=== PATIENT | female | born 1985 | race Caucasian/White ===

== ENCOUNTER 2016-09-05 11:28 | Inpatient (IN) | payer OTHER ==
[2016-09-05 12:48] VITALS: BMI 22.8
--- NOTE | 2016-09-05 14:17 | HP ---
COWS - Scale Resting Pulse: 2= [place] 101-120 Sweatin=Flushed/Facial Moisture Restless Observation: 1= Difficult to Sit Still Pupil Size: 0= Normal to Room Light Bone or Joint Aches: 2= Severe Diffuse Aches Runny Nose/ Eye Tearin= Runny Nose/Eyes GI Upset > 30mins: 1= Stomach Cramp Tremor Observation: 2= Slight Tremor Visible Yawning Observation: 2= >3x During Session Anxiety or Irritability: 2=Irritable/Anxious Goose Flesh Skin: 3=Piloerection COWS Score: 19 Admission ROS S - HPI Chief Complaint: I need to be here. Allergies/Adverse Reactions: Allergies Allergy/AdvReac Type Severity Reaction Status Date / Time No Known Allergies Allergy Verified 09/05/16 13:35 History of Present Illness: pt is a 31yr old female with a history of heroin dependence seeking detox for treatment. Exam Limitations: No Limitations - Ebola screening Have you traveled outside of the country in the last 21 days: No Have you had contact with anyone from an Ebola affected area: No Have you been sick,other than usual withdrawal symptoms: No Do you have a fever: No - Review of Systems Constitutional: Chills, Diaphoresis, Loss of Appetite, Night Sweats, Changes in sleep, Unintentional Wgt. Loss EENT: reports: No Symptoms Reported Respiratory: reports: No Symptoms reported Cardiac: reports: No Symptoms Reported GI: reports: Poor Appetite, Poor Fluid Intake : reports: No Symptoms Reported Musculoskeletal: reports: No Symptoms Reported Integumentary: reports: Flushing, Sweating Neuro: reports: Tingling, Tremors Endocrine: reports: Excessive Sweating, Flushing, Intolerance to Cold, Intolerance to Heat Hematology: reports: No Symptoms Reported Psychiatric: reports: Judgement Intact, Mood/Affect Appropiate, Orientated x3, Agitated, Anxious Other Systems: Reviewed and Negative Patient History - Patient Medical History Hx Anemia: No Hx Asthma: No Hx Chronic Obstructive Pulmonary Disease (COPD): No Hx Cancer: No Hx Cardiac Disorders: No Hx Congestive Heart Failure: No Hx Hypertension: No Hx Hypercholesterolemia: No Hx Pacemaker: No HX Cerebrovascular Accident: No Hx Seizures: No Hx Dementia: No Hx Diabetes: No Hx Gastrointestinal Disorders: No Hx Liver Disease: No Hx Genitourinary Disorders: No Hx Sexually Transmitted Disorders: No Hx Renal Disease (ESRD): No Hx Thyroid Disease: No Hx Human Immunodeficiency Virus (HIV): No (negative) Hx Hepatitis C: No (negative) Hx Depression: No Hx Suicide Attempt: No (denies) Hx Bipolar Disorder: No Hx Schizophrenia: No - Patient Surgical History Past Surgical History: No - PPD History Previous Implant?: Yes Documented Results: Negative w/o proof Implanted On Prior [facility] Admission?: No PPD to be Administered?: Yes - Reproductive History Patient is a Female of Child Bearing Age (11 -55 yrs old): No Last Menstrual Period: 08/05/16 Patient : No - Smoking Cessation Smoking history: Current every day smoker Have you smoked in the past 12 months: Yes Aproximately how many cigarettes per day: 4 Hx Chewing Tobacco Use: No Initiated information on smoking cessation: Yes 'Breaking Loose' booklet given: 09/05/16 - Substance & Tx. History Hx Alcohol Use: No Hx Substance Use: Yes Substance Use Type: Heroin - Substances Abused Heroin Route: Inhalation Frequency: Daily Amount used: 5 bags Age of first use: 24 Date of Last Use: 09/05/16 Family Disease History - Family Disease History Family History: Denies Admission Physical Exam BHS - Vital Signs Vital Signs: Vital Signs - 24 hr 09/05/16 12:46 Temperature 96.7 F L Pulse Rate 113 H Respiratory 20 Rate Blood Pressure 119/81 - Physical General Appearance: Yes: Appropriately Dressed, Moderate Distress, Tremorous, Irritable, Sweating, Anxious HEENTM: Yes: Normal Voice, Nasal Congestion, Rhinorrhea Respiratory: Yes: Lungs Clear, Normal Breath Sounds, No Respiratory Distress Neck: Yes: No masses,lesions,Nodules Breast: Yes: Within Normal Limits Cardiology: Yes: Regular Rhythm, Regular Rate, S1, S2 Abdominal: Yes: Normal Bowel Sounds, Non Tender Genitourinary: Yes: Within Normal Limits Back: Yes: Normal Inspection Musculoskeletal: Yes: full range of Motion Extremities: Yes: Normal Capillary Refill, Tremors Neurological: Yes: Fully Oriented, Alert, Normal Response Integumentary: Yes: Normal Color, Diaphoresis Lymphatic: Yes: Within Normal Limits - Diagnostic (1) Opioid dependence with withdrawal Current Visit: Yes Status: Chronic (2) Nicotine dependence Current Visit: Yes Status: Chronic Qualifiers: Nicotine product type: cigarettes Substance use status: uncomplicated Qualified Code(s): F17.210 - Nicotine dependence, cigarettes, uncomplicated Cleared for Admission [facility] - Detox or Rehab [facility] Level of Care: Medically Managed Detox Regimen/Protocol: Methadone [facility] Breath Alcohol Content Breath Alcohol Content: 0 Urine Pregancy Test - Result Urine Test Results: Negative- NO Line Present Urine Drug Screen - Results Drug Screen Negative: No Urine Drug Screen Results: OPI-Opiates
[2016-09-05] MEDS ORDERED: MAGNESIUM CITRATE 300 ML BOTTLE PO PRN (14:22)
[2016-09-05] MEDS ORDERED: ACETAMINOPHEN 325 MG TABLET (FP) PO PRN (14:22)
[2016-09-05] MEDS ORDERED: LOPERAMIDE HCL 2 MG CAPSULE PO PRN (14:22)
[2016-09-05] MEDS ORDERED: MAGNESIUM HYDROX 2400MG/30ML ORAL SUSPENSION 30 ML CUP PO PRN (14:22)
[2016-09-05] MEDS ORDERED: guaiFENesin/D-METHORPHAN HB 10 ML UNIT-DOSE CUPS PO PRN (14:22)
[2016-09-05] MEDS ORDERED: NICOTINE POLACRILEX 4 MG GUM BC PRN (14:22)
[2016-09-05] MEDS ORDERED: diphenhydrAMINE HCL 50 MG CAPSULE PO PRN (14:22)
[2016-09-05] MEDS ORDERED: MAG HYDROX/AL HYDROX/SIMETH 30 ML UNIT-DOSE CUP PO PRN (14:22)
[2016-09-05] MEDS ORDERED: IBUPROFEN 400 MG TABLET (FP) PO PRN (14:22)
[2016-09-05] MEDS ORDERED: MENTHOL/PHENOL 1 EACH UD MM PRN (14:22)
[2016-09-05] MEDS ORDERED: P-EPHED 60MG/TRIPROLIDI 2.5MG TABLET PO PRN (14:22)
[2016-09-05] MEDS ORDERED: METHADONE HCL 10 MG TABLET (FOR DETOX USE ONLY) PO ONE ×2 (15:00→23:00)
[2016-09-05] MEDS: diazePAM 5 MG TABLET PO PRN ×2 (15:21→22:59)
[2016-09-05 16:48] LABS: URINE APPEARANCE CLOUDY; URINE BILIRUBIN NEGATIVE (NEGATIVE); URINE COLOR DKYELLOW; URINE GLUCOSE (UA) NEGATIVE (NEGATIVE); URINE KETONE TRACE (NEGATIVE); URINE NITRITE NEGATIVE (NEGATIVE); URINE UROBILINOGEN 2.0 E.U/dl E.U./dl (0.2-1.0)
[2016-09-05 17:46] LABS: URINE BLOOD 1+ (NEGATIVE); URINE LEUK ESTERASE 2+ (NEGATIVE); URINE PROTEIN 1+ (NEGATIVE)
[2016-09-05 18:03] LABS: URINE BACTERIA RARE /hpf (NONE SEEN); URINE MUCUS MANY; URINE RBC 11 /hpf (0-3); URINE WBC 35 /hpf (3-5)
[2016-09-05] MEDS: THIAMINE HCL 100 MG TABLET (FP) PO SCH (22:58)
[2016-09-06] MEDS ORDERED: METHADONE HCL 10 MG TABLET (FOR DETOX USE ONLY) PO ONE (10:00)
[2016-09-06 10:27] LABS: MCH 27.3 pg (25.7-33.7); MCHC 33.3 g/dl (32.0-36.0); MEAN CELL VOLUME 81.9 fl (80-96); MEAN PLT VOLUME 8.2 fl (7.5-11.1); PLATELET COUNT 306 K/MM3 (134-434); RDW 12.7 % (11.6-15.6); WHITE BLOOD COUNT 9.3 K/mm3 (4.0-10.0)
[2016-09-06] MEDS: NICOTINE 7 MG/24 HOURS TOPICAL PATCH TD SCH (10:30)
[2016-09-06] MEDS: PRENATAL VITAMINS W/ FOLIC ACID TABLET (FP) PO SCH (10:30)
[2016-09-06 10:59] LABS: ALBUMIN 3.8 g/dl (3.4-5.0); ANION GAP 8 (8-16); BILIRUBIN,TOTAL 0.4 mg/dL (0.2-1.0); CALCIUM 8.8 mg/dL (8.5-10.1); CO2 30 mmol/L (21-32); CREATININE 0.8 mg/dL (0.55-1.02); GLUCOSE,RANDOM 91 mg/dL (74-106); SGOT/AST 8 U/L (15-37); SGPT/ALT 15 U/L (12-78)
[2016-09-06 11:00] LABS: ALK PHOS 111 U/L (45-117); TOT PROT 6.7 g/dl (6.4-8.2)
--- NOTE | 2016-09-06 11:04 | PN ---
BHS COWS - Scale Resting Pulse: 1= [place] 81-100 Sweatin= Chills/Flushing Restless Observation: 3= Extraneous Movement Pupil Size: 1= Pupils >than Normal Bone or Joint Aches: 2= Severe Diffuse Aches Runny Nose/ Eye Tearin= Runny Nose/Eyes GI Upset > 30mins: 3= Vomiting/Diarrhea Tremor Observation of Outstretched Hands: 2= Slight Tremor Visible Yawning Observation: 1= 1-2x During Session Anxiety or Irritability: 2=Irritable/Anxious Goose Flesh Skin: 0=Smooth Skin COWS Score: 18 S Progress Note (SOAP) Subjective: ALERT,IRRITABLE,ANXIOUS,INTERRUPTED SLEEP,TREMOR,PAIN IN THE BODY AND BACK Objective: 09/06/16 11:02 Vital Signs Temperature 98.1 F 09/06/16 09:53 Pulse Rate 85 09/06/16 09:53 Respiratory Rate 18 09/06/16 09:53 Blood Pressure 108/67 09/06/16 09:53 O2 Sat by Pulse Oximetry (%) EKG NSR,NORMAL ECG Laboratory Last Values WBC 9.3 K/mm3 (4.0-10.0) 09/06/16 07:50 RBC 4.77 M/mm3 (3.60-5.2) 09/06/16 07:50 Hgb 13.0 GM/dL (10.7-15.3) 09/06/16 07:50 Hct 39.0 % (32.4-45.2) 09/06/16 07:50 MCV 81.9 fl (80-96) 09/06/16 07:50 MCHC 33.3 g/dl (32.0-36.0) 09/06/16 07:50 RDW 12.7 % (11.6-15.6) 09/06/16 07:50 Plt Count 306 K/MM3 (134-434) 09/06/16 07:50 MPV 8.2 fl (7.5-11.1) 09/06/16 07:50 Urine Color Dkyellow 09/05/16 13:00 Urine Appearance Cloudy 09/05/16 13:00 Urine pH 5.0 (5.0-8.0) 09/05/16 13:00 Ur Specific [place] 1.028 (1.001-1.035) 09/05/16 13:00 Urine Protein 1+ (NEGATIVE) H 09/05/16 13:00 Urine Glucose (UA) Negative (NEGATIVE) 09/05/16 13:00 Urine Ketones Trace (NEGATIVE) H 09/05/16 13:00 Urine Blood 1+ (NEGATIVE) H 09/05/16 13:00 Urine Nitrite Negative (NEGATIVE) 09/05/16 13:00 Urine Bilirubin Negative (NEGATIVE) 09/05/16 13:00 Urine Urobilinogen 2.0 e.u/dl E.U./dl (0.2-1.0) H 09/05/16 13:00 Ur Leukocyte Esterase 2+ (NEGATIVE) H 09/05/16 13:00 Urine RBC 11 /hpf (0-3) 09/05/16 13:00 Urine WBC 35 /hpf (3-5) 09/05/16 13:00 Ur Epithelial Cells Moderate /hpf (FEW) 09/05/16 13:00 Urine Bacteria Rare /hpf (NONE SEEN) 09/05/16 13:00 Urine Mucus Many 09/05/16 13:00 LABS PENDING Assessment: 09/06/16 11:03 WITHDRAWAL SYMPTOM Plan: CONTINUE DETOX,REPEAT UA,ENCOURAGE RAL FLUID
--- NOTE | 2016-09-06 11:45 | CONSULT ---
[facility] Psychiatric Consult - Data Date of interview: 09/06/16 Admission source: [facility] Identifying data: First admission to [facility] for this 31 y/o female seeking detox treatment for heroin dependence.Patient is single,a mother of one, domiciled,unemployed and supported by relatives. Substance Abuse History: - Smoking Cessation. Smoking history: Current every day smoker. Have you smoked in the past 12 months: Yes. Aproximately how many cigarettes per day: 4. Hx Chewing Tobacco Use: No. Initiated information on smoking cessation: Yes. 'Breaking Loose' booklet given: 09/05/16. - Substance & Tx. History. Hx Alcohol Use: No. Hx Substance Use: Yes. Substance Use Type : Heroin. - Substances Abused. Heroin. Route: Inhalation. Frequency: Daily. Amount used: 5 bags. Age of first use: 24. Date of Last Use: . Confirmed by patient. Medical History: Patient endorses good general health. Psychiatric History: Patient denies. Physical/Sexual Abuse/Trauma History: Patient denies. Additional Comment: Urine Drug Screen Results: OPI-Opiates.Noted. Mental Status Exam - Mental Status Exam Alert and Oriented to: Time, Place, Person Cognitive Function: Good Patient Appearance: Well Groomed Mood: Hopeful, Euthymic Affect: Appropriate, Normal Range Patient Behavior: Appropriate, Cooperative Speech Pattern: Clear, Appropriate Voice Loudness: Normal Thought Process: Intact, Goal Oriented Thought Disorder: Not Present Hallucinations: Denies Suicidal Ideation: Denies Homicidal Ideation: Denies Insight/Judgement: Fair Sleep: Well Appetite: Good Muscle strength/Tone: Normal Gait/Station: Normal Psychiatric Findings - Problem List ([place] 1, 2,3) (1) Nicotine dependence Current Visit: Yes Status: Chronic Qualifiers: Nicotine product type: cigarettes Substance use status: uncomplicated Qualified Code(s): F17.210 - Nicotine dependence, cigarettes, uncomplicated (2) Opioid dependence with withdrawal Current Visit: Yes Status: Chronic - Initial Treatment Plan Initial Treatment Plan: Psychoeducation.Detoxification.Observation.
--- NOTE | 2016-09-06 12:31 | EKG ---
Test Reason : Blood Pressure : / mmHG Vent. Rate : 090 BPM Atrial Rate : 090 BPM P-R Int : 132 ms QRS Dur : 084 ms QT Int : 374 ms P-R-T Axes : 059 030 023 degrees QTc Int : 457 ms NORMAL SINUS RHYTHM NORMAL ECG NO PREVIOUS ECGS AVAILABLE Confirmed by TARSHA MIRANDA MD ([id number]) on 09/06/2016 12:30:37 PM Referred By: Dale Parrish Confirmed By:TARSHA MIRANDA MD
[2016-09-06 13:40] LABS: URINE APPEARANCE CLEAR; URINE BILIRUBIN NEGATIVE (NEGATIVE); URINE BLOOD NEGATIVE (NEGATIVE); URINE COLOR YELLOW; URINE GLUCOSE (UA) NEGATIVE (NEGATIVE); URINE KETONE NEGATIVE (NEGATIVE); URINE NITRITE NEGATIVE (NEGATIVE); URINE PROTEIN NEGATIVE (NEGATIVE); URINE UROBILINOGEN NEGATIVE E.U./dl (0.2-1.0)
[2016-09-06 13:42] LABS: URINE LEUK ESTERASE TRACE (NEGATIVE)
[2016-09-06 13:44] LABS: URINE BACTERIA RARE /hpf (NONE SEEN); URINE HYALINE CAST 1 /lpf; URINE MUCUS RARE; URINE RBC 3 /hpf (0-3); URINE WBC 10 /hpf (3-5)
[2016-09-06] MEDS: hydrOXYzine PAMOATE 50 MG CAPSULE (FP) PO PRN (18:25)
[2016-09-06] MEDS: diazePAM 5 MG TABLET PO PRN (22:39)
[2016-09-06] MEDS: THIAMINE HCL 100 MG TABLET (FP) PO SCH (22:39)
[2016-09-07] MEDS ORDERED: METHADONE HCL 5 MG TABLET (FOR DETOX USE ONLY) PO ONE (10:00)
[2016-09-07] MEDS: NICOTINE 7 MG/24 HOURS TOPICAL PATCH TD SCH (10:18)
[2016-09-07] MEDS: PRENATAL VITAMINS W/ FOLIC ACID TABLET (FP) PO SCH (10:18)
--- NOTE | 2016-09-07 11:51 | PN ---
BHS COWS - Scale Resting Pulse: 2= [place] 101-120 Sweatin= Chills/Flushing Restless Observation: 3= Extraneous Movement Pupil Size: 1= Pupils >than Normal Bone or Joint Aches: 2= Severe Diffuse Aches Runny Nose/ Eye Tearin= Runny Nose/Eyes GI Upset > 30mins: 3= Vomiting/Diarrhea Tremor Observation of Outstretched Hands: 2= Slight Tremor Visible Yawning Observation: 1= 1-2x During Session Anxiety or Irritability: 2=Irritable/Anxious Goose Flesh Skin: 0=Smooth Skin COWS Score: 19 BHS Progress Note (SOAP) Subjective: ALERT,IRRITABLE,ANXIOUS,INTERRUPTED SLEEP,TREMOR,PAIN IN THE BODY AND BACK Objective: 09/07/16 11:51 Vital Signs Temperature 97.5 F L 09/07/16 10:43 Pulse Rate 101 H 09/07/16 10:43 Respiratory Rate 20 09/07/16 10:43 Blood Pressure 132/84 09/07/16 10:43 O2 Sat by Pulse Oximetry (%) 09/07/16 11:52 Laboratory Results - last 24 hr 09/06/16 09/06/16 07:50 13:26 Urine Color Yellow Urine Appearance Clear Urine pH 5.0 Ur Specific [place] 1.023 Urine Protein Negative Urine Glucose (UA) Negative Urine Ketones Negative Urine Blood Negative Urine Nitrite Negative Urine Bilirubin Negative Urine Urobilinogen Negative Ur Leukocyte Esterase Trace H D Urine RBC 3 Urine WBC 10 Ur Epithelial Cells Rare Urine Bacteria Rare Hyaline Casts 1 Urine Mucus Rare RPR Titer Nonreactive Assessment: 09/07/16 11:52 WITHDRAWAL SYMPTOM Plan: CONTINUE DETOX
[2016-09-07] MEDS: diazePAM 5 MG TABLET PO PRN ×2 (17:37→22:40)
[2016-09-07] MEDS: THIAMINE HCL 100 MG TABLET (FP) PO SCH (22:40)
[2016-09-08] MEDS ORDERED: METHADONE HCL 5 MG TABLET (FOR DETOX USE ONLY) PO ONE (10:00)
[2016-09-08] MEDS: PRENATAL VITAMINS W/ FOLIC ACID TABLET (FP) PO SCH (10:12)
[2016-09-08] MEDS: NICOTINE 7 MG/24 HOURS TOPICAL PATCH TD SCH (10:14)
--- NOTE | 2016-09-08 11:13 | PN ---
BHS Progress Note (SOAP) Subjective: feeling ok , better Objective: 09/08/16 11:11 Vital Signs Temperature 98.1 F 09/08/16 10:20 Pulse Rate 112 H 09/08/16 10:20 Respiratory Rate 16 09/08/16 10:20 Blood Pressure 110/72 09/08/16 10:20 O2 Sat by Pulse Oximetry (%) Laboratory Tests 09/05/16 09/06/16 09/06/16 13:00 07:50 07:50 WBC 9.3 RBC 4.77 Hgb 13.0 Hct 39.0 MCV 81.9 MCHC 33.3 RDW 12.7 Plt Count 306 MPV 8.2 Sodium 140 Potassium 4.4 Chloride 102 Carbon Dioxide 30 Anion Gap 8 BUN 12 Creatinine 0.8 Creat Clearance w eGFR > 60 Random Glucose 91 Calcium 8.8 Total Bilirubin 0.4 AST 8 L ALT 15 Alkaline Phosphatase 111 Total Protein 6.7 Albumin 3.8 Urine Color Dkyellow Urine Appearance Cloudy Urine pH 5.0 Ur Specific [place] 1.028 Urine Protein 1+ H Urine Glucose (UA) Negative Urine Ketones Trace H Urine Blood 1+ H Urine Nitrite Negative Urine Bilirubin Negative Urine Urobilinogen 2.0 e.u/dl H Ur Leukocyte Esterase 2+ H Urine RBC 11 Urine WBC 35 Ur Epithelial Cells Moderate Urine Bacteria Rare Hyaline Casts Urine Mucus Many RPR Titer 09/06/16 09/06/16 07:50 13:26 WBC RBC Hgb Hct MCV MCHC RDW Plt Count MPV Sodium Potassium Chloride Carbon Dioxide Anion Gap BUN Creatinine Creat Clearance w eGFR Random Glucose Calcium Total Bilirubin AST ALT Alkaline Phosphatase Total Protein Albumin Urine Color Yellow Urine Appearance Clear Urine pH 5.0 Ur Specific [place] 1.023 Urine Protein Negative Urine Glucose (UA) Negative Urine Ketones Negative Urine Blood Negative Urine Nitrite Negative Urine Bilirubin Negative Urine Urobilinogen Negative Ur Leukocyte Esterase Trace H D Urine RBC 3 Urine WBC 10 Ur Epithelial Cells Rare Urine Bacteria Rare Hyaline Casts 1 Urine Mucus Rare RPR Titer Nonreactive pt aox3 in nad ambulating Assessment: 09/08/16 11:11 withdrawal sx;s Plan: cont. deto increase fluids
[2016-09-08] MEDS: hydrOXYzine PAMOATE 50 MG CAPSULE (FP) PO PRN (22:33)
[2016-09-08] MEDS: THIAMINE HCL 100 MG TABLET (FP) PO SCH (22:33)
[2016-09-09] MEDS ORDERED: METHADONE HCL 10 MG TABLET (FOR DETOX USE ONLY) PO ONE (10:00)
[2016-09-09] MEDS: NICOTINE 7 MG/24 HOURS TOPICAL PATCH TD SCH (10:42)
[2016-09-09] MEDS: PRENATAL VITAMINS W/ FOLIC ACID TABLET (FP) PO SCH (10:42)
--- NOTE | 2016-09-09 11:21 | PN ---
BHS Progress Note (SOAP) Subjective: feeling better little sweats Objective: 09/09/16 11:21 Vital Signs Temperature 98.4 F 09/09/16 10:44 Pulse Rate 101 H 09/09/16 10:44 Respiratory Rate 16 09/09/16 10:44 Blood Pressure 108/71 09/09/16 10:44 O2 Sat by Pulse Oximetry (%) awake/alert ambulating no acute distress Assessment: 09/09/16 11:21 withdrawal sx Plan: continue detox increase fluids
[2016-09-09] MEDS: THIAMINE HCL 100 MG TABLET (FP) PO SCH (22:38)
[2016-09-10] MEDS ORDERED: METHADONE HCL 5 MG TABLET (FOR DETOX USE ONLY) PO ONE (06:00)
[2016-09-10 06:16] VITALS: BP 109/63; PULSE 90; TEMP 98.4
--- NOTE | 2016-09-10 09:00 | DS ---
[facility] Detox Discharge Summary Admission Date: 09/05/16 Discharge Date: 09/10/16 - History Present History: Opioid Dependence - Physical Exam Results Vital Signs: Vital Signs Temperature 98.4 F 09/10/16 06:14 Pulse Rate 90 09/10/16 06:14 Respiratory Rate 18 09/10/16 06:14 Blood Pressure 109/63 09/10/16 06:14 O2 Sat by Pulse Oximetry (%) - Treatment Hospital Course: Detox Protocol Followed, Detoxed Safely, Responded well, Discharged Condition Good - Medication Discharge Medications: Ambulatory Orders NK [No Known Home Medication] 09/05/16 - Diagnosis (1) Nicotine dependence Current Visit: Yes Status: Chronic Qualifiers: Nicotine product type: cigarettes Substance use status: uncomplicated Qualified Code(s): F17.210 - Nicotine dependence, cigarettes, uncomplicated (2) Opioid dependence with withdrawal Current Visit: Yes Status: Chronic - AMA Did Patient Leave Against Medical Advice: No
== END 2016-09-10 09:12 | disposition home or self-care (01) | DRG 773 ==
LOC: YASAS 11:28 → Y6N 14:39
PROVIDERS: ADMIT Internal Medicine; ATTEND Internal Medicine
PROC: HZ2ZZZZ Detoxification Services for Substance Abuse Treatment (ICD-10-PCS; principal; 2016-09-05)
DX: F11.23 Opioid dependence with withdrawal (principal); F17.210 Nicotine dependence, cigarettes, uncomplicated
CPT/HCPCS: 36415; 80053; 81003; 81015; 85027; 86593; 93005; 93010